=== PATIENT | male | born 1985 | race Caucasian/White ===

== ENCOUNTER 2018-11-17 13:19 | Emergency (ER) | payer SELFPAY ==
[~2018-11-17] VITALS: Wt 113.6 kg
[2018-11-17 13:21] VITALS: BP 117/68; PULSE 105; RESP 20
--- NOTE | 2018-11-17 17:13 | ERD ---
ER Documentation Chief Complaint Chief Complaint TAILBONE PAIN FROM SKYDIVING YESTERDAY. NO NEURO MOTOR DEFICIT HPI This is an otherwise healthy 33-year-old male who presents for evaluation of pain to his tailbone. The patient reports that he went skydiving for the first time yesterday, and he had a fall on his tailbone, initially did not have significant pain, but is progressed over the last several days. He denies numbness, no weakness, pain is localized to the sacral area. He has had no bowel or bladder incontinence. ROS All systems reviewed and are negative except as per history of present illness. PMhx/Soc Medical and Surgical Hx: pt denies Medical Hx, pt denies Surgical Hx Hx Alcohol Use: No Hx Substance Use: No Hx Tobacco Use: No Physical Exam Vitals Vital Signs Date Temp Pulse Resp B/P (MAP) Pulse Ox O2 O2 Flow FiO2 Time Delivery Rate 11/17/18 98.0 105 20 117/68 98 13:21 (84) Physical Exam Const: Afebrile, nontoxic Head: Atraumatic Eyes: Normal conjunctiva ENT: Normal external ears, nose and mouth. Neck: Resp: Normal respiratory effort Cardio: Abd: Skin: Back: There is point tenderness over the sacrum, there is no step-off, there is no lumbar or thoracic spine tenderness. There is full range of motion of all extremities, strength is 5 out of 5 bilaterally. Ext: Neur: Awake and alert Psych: Normal mood and affect Procedures/MDM Is a 33-year-old male who presents for evaluation of sacral pain, patient did not appear to have a significant trauma, and has noted progressive soreness and pain over her sacrum. He had no obvious deformity, his x-ray was negative for acute fracture, at this point he is stable for discharge home, at discharge he was in no distress. Departure Diagnosis: Primary Impression: Sacral pain Condition: Stable HARVINDER GODWIN MD Nov 17, 2018 17:13
== END 2018-11-17 17:26 | disposition home or self-care (01) ==
LOC: FTE 13:19
DX: M53.3 Sacrococcygeal disorders, not elsewhere classified (principal)
CPT/HCPCS: 72220